=== PATIENT | female | born 1955 | race Caucasian/White ===

== ENCOUNTER 2017-05-01 11:10 | Emergency (ER) | END 2017-05-01 19:12 | disposition home or self-care (01) ==

== ENCOUNTER 2018-05-28 09:34 | Emergency (ER) | payer OTHER ==
[~2018-05-28] VITALS: Ht 167.6 cm; Wt 64.5 kg
[~2018-05-28 09:34] MED LIST: ALBU18HF INHALATION; AZIT250T PO; BENZ200C68 PO; PRED20TA PO
[2018-05-28 09:51] VITALS: Ht 167.6 cm; Wt 64.5 kg
[2018-05-28] MEDS ORDERED: KETOROLAC 30 MG INJ IV STA (11:11)
[2018-05-28] MEDS ORDERED: SOD CHLORIDE 0.9% 1,000 ML IV STA (11:11)
[2018-05-28] MEDS ORDERED: DEXAMETHASONE 10 MG/ML 1 ML INJ IV ONE (11:30)
[2018-05-28] MEDS ORDERED: CLINDAMYCIN 600 MG INJ IV ONE (11:30)
--- NOTE | 2018-05-28 11:39 | ERD ---
ER Documentation Chief Complaint Chief Complaint Complains of a sorethroat x3 days HPI 62-year-old female presents with complaint of sore throat body aches, difficulty swallowing, muffled voice for the past week. States that in addition she has been having fevers but they are subjective. Denies taking any treatments. Denies past medical history. Denies allergies. Denies medications. Denies surgeries. Denies alcohol, tobacco, drug use. Up to date on vaccines. ROS All systems reviewed and are negative except as per history of present illness. Medications Home Meds Active Scripts Hydrocodone/Acetaminophen ([place] 5-325 Tablet) 1 Each Tablet, 1 TAB PO Q6H PRN for PAIN, #10 TAB Prov:MI HARPER 05/28/18 Ibuprofen* (Motrin*) 600 Mg Tab, 600 MG PO Q6H PRN for PAIN AND OR ELEVATED TEMP, #30 TAB Prov:MI HARPER 05/28/18 Clindamycin Hcl* (Clindamycin Hcl*) 300 Mg Capsule, 300 MG PO QID for tonsilitis for 10 Days, CAP Prov:MI HARPER 05/28/18 Prednisone* (Prednisone*) 20 Mg Tab, 40 MG PO DAILY for tonsilitis for 4 Days, TAB Prov:MI HARPER 05/28/18 Albuterol Sulfate* (Ventolin HFA*) 18 Gm Hfa.aer.ad, 2 PUFF INHALATION Q4H, #1 INHALER Prov:MI GUARDADO PA-C 05/01/17 Benzonatate* (Benzonatate*) 200 Mg Capsule, 200 MG PO TID PRN for COUGH, #15 CAP Prov:MI GUARDADO PA-C 05/01/17 Azithromycin* (Zithromax*) 250 Mg Tablet, 250 MG PO .ZPACK DIRECTED, #6 TAB TAKE 500 MG (2 TABS) THE FIRST DAY THEN 250 MG (1 TAB) DAYS 2-5 Prov:MI GUARDADO PA-C 05/01/17 Prednisone* (Prednisone*) 20 Mg Tab, 20 MG PO DAILY for 5 Days, #5 TAB Prov:MI GUARDADO PA-C 05/01/17 Allergies Allergies: Coded Allergies: No Known Allergy (Unverified , 05/28/18) FmHx Family History: No diabetes, No coronary disease, No other Physical Exam Vitals Vital Signs Date Temp Pulse Resp B/P (MAP) Pulse Ox O2 O2 Flow FiO2 Time Delivery Rate 05/28/18 99.2 96 20 157/79 98 09:51 (105) Physical Exam Const: No acute distress Head: Atraumatic Eyes: Normal Conjunctiva ENT: Edema noted in the peritonsillar space bilaterally. Uvula is midline. Oropharynx is difficult to visualize. Normal External Ears, Nose and Mouth. Neck: Full range of motion. No meningismus. Resp: Clear to auscultation bilaterally Cardio: Regular rate and rhythm, no murmurs Abd: Soft, non tender, non distended. Normal bowel sounds Skin: No petechiae or rashes Back: No midline or flank tenderness Ext: No cyanosis, or edema Neur: Awake and alert Psych: Normal Mood and Affect Result Diagram: 05/28/18 1120 05/28/18 1120 Results 24 hrs Laboratory Tests Test 05/28/18 11:20 White Blood Count 11.5 10^3/ul Red Blood Count 4.82 10^6/ul Hemoglobin 13.5 g/dl Hematocrit 42.3 % Mean Corpuscular Volume 87.8 fl Mean Corpuscular Hemoglobin 28.0 pg Mean Corpuscular Hemoglobin Concent 31.9 g/dl Red Cell Distribution Width 13.2 % Platelet Count 360 10^3/UL Mean Platelet Volume 8.3 fl Immature Granulocytes % 0.300 % Neutrophils % 66.9 % Lymphocytes % 23.2 % Monocytes % 6.7 % Eosinophils % 2.5 % Basophils % 0.4 % Nucleated Red Blood Cells % 0.0 /100WBC Immature Granulocytes # 0.040 10^3/ul Neutrophils # 7.7 10^3/ul Lymphocytes # 2.7 10^3/ul Monocytes # 0.8 10^3/ul Eosinophils # 0.3 10^3/ul Basophils # 0.1 10^3/ul Nucleated Red Blood Cells # 0.0 10^3/ul Sodium Level 143 mmol/L Potassium Level 4.2 mmol/L Chloride Level 107 mmol/L Carbon Dioxide Level 25 mmol/L Anion Gap 11 Blood Urea Nitrogen 8 mg/dl Creatinine 0.53 mg/dl Est Glomerular Filtrat Rate mL/min > 60 mL/min Glucose Level 119 mg/dl Calcium Level 9.6 mg/dl Total Bilirubin 0.3 mg/dl Direct Bilirubin 0.00 mg/dl Indirect Bilirubin 0.3 mg/dl Aspartate Amino Transf (AST/SGOT) 24 IU/L Alanine Aminotransferase (ALT/SGPT) 13 IU/L Alkaline Phosphatase 140 IU/L Total Protein 9.2 g/dl Albumin 4.7 g/dl Globulin 4.50 g/dl Albumin/Globulin Ratio 1.04 Current Medications Medications Dose Sig/Willian Start Time Status Last (Trade) Ordered Route PRN Stop Time Admin Dose Reason Admin Sodium 1,000 ml @ Q1H STAT 05/28/18 DC 05/28/18 Chloride 1,000 mls/hr IV 11:11 11:26 05/28/18 12:10 Ketorolac 30 mg ONCE STAT 05/28/18 DC 05/28/18 Tromethamine IV 11:11 11:27 (Toradol) 05/28/18 11:17 10 mg ONCE ONCE 05/28/18 DC 05/28/18 Dexamethasone IV 11:30 11:27 (Decadron) 05/28/18 11:31 Clindamycin 600 mg ONCE ONCE 05/28/18 DC Phosphate IV 11:30 (Cleocin) 05/28/18 11:31 Clindamycin 50 ml @ 50 ONCE IVPB 05/28/18 DC 05/28/18 HCl/ mls/hr 12:00 11:38 Dextrose 05/28/18 12:59 Sodium 100 ml @ ud STK-MED 05/28/18 DC 05/28/18 Chloride ONCE .ROUTE 12:40 12:41 05/28/18 12:41 Iohexol 150 ml STK-MED 05/28/18 DC 05/28/18 (Omnipaque ONCE .ROUTE 12:40 12:42 300mg/ ml) 05/28/18 12:41 Procedures/MDM DIAGNOSTIC IMAGING REPORT Patient: JIMY GARCIA : 1955 Age: 62 Sex: F MR #: [id number] DOS: 05/28/18 1117 Ordering MD: MI HARPER Location: [facility] Room/Bed: PROCEDURE: CT scan of the neck with contrast. CLINICAL INDICATION: Throat pain. Peritonsillar masses. TECHNIQUE: CT scan of the neck was performed on the multi-slice scanner . Contiguous axial images were obtained throughout the neck with coronal and sagittal reformatted images. 80 cc of Omnipaque 300 was administered. The exam CTDI = 8.94 and the DLP equals 270.52 mGy-cm. DICOM images are available. One or more of the following dose reduction techniques were used: Automated exposure control. Adjustment of the mA and/or kV according to patient size. Use of iterative reconstruction technique. COMPARISON: None available FINDINGS: There is symmetric enlargement of the bilateral palatine tonsil. There is no peritonsillar fluid collection. Mildly enlarged lymph nodes are seen in bilateral upper neck. There is approximately 1.7 x 1.9 cm nodularity containing punctate calcifications along the mid aspect of the left sternocleidomastoid muscle The hypopharynx, larynx, and trachea are unremarkable. No airway compromise is seen. The mucosal space of the airway is clear. The deep spaces of the suprahyoid neck are symmetric and normal. No mass is identified. The parotid glands, submandibular glands, and thyroid gland are all normal. Imaging obtained through the lung apices revealed no acute abnormality. Moderate mucosal thickening is seen in the ethmoid air cells. Mild mucosal thickening is seen in the remainder of the paranasal sinuses. There is no air-fluid level. IMPRESSION: 1. Symmetric mild enlargement of bilateral palatine tonsil suggestive of tonsillitis in the appropriate clinical settings. No peritonsillar abscess. 2. Mildly enlarged lymph nodes in bilateral neck measures up to 1.2 cm in short axis at the right level II a. 3. Approximately 2 cm nodular structure containing punctate calcifications along the mid aspect of the left sternocleidomastoid muscle which could represent old hematoma; however cannot exclude soft tissue mass. Clinical correlation and short-term follow-up ultrasound should be considered to ensure stability. RPTAT: BB .Lyubov Thompson MD, MD Date Time Electronically viewed and signed by .Lyubov Thompson MD, on 05/28/2018 13:16 .O/ CC: MI HARPER [phone] ER course: Patient given IV clindamycin, IV Decadron, IV Toradol, CBC CMP, CT soft tissue neck with contrast. 62-year-old female presents with complaint of sore throat body aches, difficulty swallowing, muffled voice for the past week. States that in addition she has been having fevers but they are subjective. Denies taking any treatments. Denies past medical history. Denies allergies. Denies medications. Denies surgeries. Denies alcohol, tobacco, drug use. Up to date on vaccines. Soft tissue CT was ordered to rule out peritonsillar abscess and report showed tonsillitis without any abscesses. Patient will be discharged on oral prednisone and clindamycin. Patient given short course of [place] for breakthrough pain as well as ibuprofen. I have low suspicion for airway occlusion, peritonsillar abscess, retropharyngeal abscess, or any other emergent condition. Patient's vitals and lab work within normal limits. Patient discharged with strict ER precautions. Patient advised to follow up with PMD. All questions answered at discharge. The patient has been prescribed [place] during this encounter. The patient has been warned about the use of narcotics. The patient should not drive or operate heavy machinery while taking this medication. The patient was also warned about the addictive properties of narcotic medications. Narcan prescription was NOT provided given the following criteria 1. No more than 5 tablets of [place] 10 mg or 10 tablets of [place] 5 mg were prescribed. 2. Concomitant opiate and benzodiazepine prescriptions were not provided. 3. There is no obvious evidence of prior history of opiate abuse or overdose. Narcan prescription WAS provided given one of the following criteria were met. 1. More than 5 tablets of [place] 10 mg or 10 tablets of [place] 5 mg were prescribed. 2. Concomitant opiate and benzodiazepine prescriptions were provided. 3. There is evidence of prior history of opiate abuse or overdose. Departure Diagnosis: Primary Impression: Tonsillitis Condition: Nissa MI HARPER May 28, 2018 11:39
[2018-05-28] MEDS ORDERED: CLINDAMYCIN 600 MG/D5W (PMX) 50 ML IVPB SCH (12:00)
[2018-05-28] MEDS ORDERED: IOHEXOL 300MG/ML 150 ML BTL ONE (12:40)
[2018-05-28] MEDS ORDERED: SOD CHLORIDE 0.9% 100 ML ONE (12:40)
[2018-05-28] MEDS ORDERED: HYDR-4011 PO (13:24)
[2018-05-28] MEDS ORDERED: CLIN300C10 PO (13:24)
[2018-05-28] MEDS ORDERED: IBUP-1542 PO (13:24)
[2018-05-28] MEDS ORDERED: PRED20TA PO (13:24)
[2018-05-28 13:50] VITALS: BP 144/72; PULSE 87; RESP 20
== END 2018-05-28 13:56 | disposition home or self-care (01) ==
LOC: FTE 09:34
DX: J03.90 Acute tonsillitis, unspecified (principal)
CPT/HCPCS: 70491; 80053; 85025; 96374; 96375; J1100; J1885; J7030; Q9967; Z7502; Z7610